=== PATIENT | male | born 1970 | race Two or more races ===

== ENCOUNTER 2020-10-04 03:04 | Emergency (ER) | payer MEDICAID ==
[~2020-10-04] VITALS: Ht 175.3 cm; Wt 88.6 kg
[2020-10-04 07:00] VITALS: BP 147/107
[2020-10-04] MEDS ORDERED: ACETAMINOPHEN 500 MG TABLET PO ONE (07:00)
== END 2020-10-04 08:31 | disposition home or self-care (01) ==
LOC: EMS 03:06
DX: R10.9 Unspecified abdominal pain (principal); K59.00 Constipation, unspecified; Z59.0 Homelessness
CPT/HCPCS: 99282; Z7502; Z7610

== ENCOUNTER 2021-03-24 11:46 | Emergency (ER) | payer MEDICAID ==
[~2021-03-24] VITALS: Ht 175.3 cm; Wt 79.5 kg
[2021-03-24 15:38] VITALS: BP 173/103
[2021-03-24] MEDS ORDERED: DiphenhydrAMINE HCL 50 MG CAPSULE PO ONE (15:45)
[2021-03-24] MEDS ORDERED: PERMETHRIN 5% 60 GM CREAM TP ONE (15:45)
[2021-03-24] MEDS ORDERED: DIPH25CA85 PO (15:50)
== END 2021-03-24 16:33 | disposition home or self-care (01) ==
LOC: EMS 11:52
DX: B86 Scabies (principal); F31.9 Bipolar disorder, unspecified; Z59.00 Homelessness unspecified
CPT/HCPCS: 99283

== ENCOUNTER 2021-04-26 18:26 | Emergency (ER) | payer MEDICAID ==
[~2021-04-26] VITALS: Ht 175.3 cm; Wt 77.3 kg
[~2021-04-26 18:26] MED LIST: DIPH25CA85 PO
[2021-04-26] MEDS ORDERED: ACETAMINOPHEN 500 MG TABLET PO ONE (19:00)
[2021-04-26] MEDS ORDERED: IBUPROFEN 600 MG TABLET PO ONE (19:00)
[2021-04-26 19:19] LABS: BASOPHILS % (AUTO) 0.7 % (0.0-2.0); EOSINOPHILS % (AUTO) 3.7 % (1.0-6.0); HEMATOCRIT 34.9 % (41-53); HEMOGLOBIN 11.9 g/dL (13.5-17.5); LYMPHOCYTES # (AUTO) 1.3 K/uL (1.0-4.8); LYMPHOCYTES % (AUTO) 15.7 % (22.0-44.0); MEAN CORPUSCULAR HEMOGLOBIN 27.9 pg (26.0-34.0); MEAN CORPUSCULAR HGB CONC 34.1 G/dL (31.0-37.0); MEAN CORPUSCULAR VOLUME 82 fL (80-100); MONOCYTES % (AUTO) 12.1 % (2.0-9.0); NEUTROPHILS # (AUTO) 5.4 K/uL (1.8-7.7); NEUTROPHILS % (AUTO) 67.8 % (40.0-70.0); PLATELET COUNT (AUTO) 345 K/uL (150-450); RED BLOOD CELL COUNT(AUTO) 4.26 MIL/uL (4.50-5.90); RED CELL DISTRIBUTION WIDTH 14.9 % (11.5-14.5)
[2021-04-26 19:28] LABS: ANION GAP 8 mmol/L (8-16); CALCIUM, TOTAL 8.7 mg/dL (8.8-10.5); CARBON DIOXIDE 29 mmol/L (22-29); CHLORIDE 103 mmol/L (98-107); CREATININE 1.24 mg/dL (0.60-1.30); GLOMERULAR FILTR. RATE CALC > 60 mL/min (>60); GLUCOSE,RANDOM 129 mg/dL (70-110); POTASSIUM 3.8 mmol/L (3.5-5.1); SODIUM SERUM 140 mmol/L (136-145); UREA NITROGEN, BLOOD 21 mg/dL (7-18)
[2021-04-26 19:34] LABS: ALANINE AMINOTRANSFERASE 33 U/L (12-78); ALBUMIN 3.2 g/dL (3.4-5.0); ALKALINE PHOSPHATASE 109 U/L (46-116); ASPARTATE AMINOTRANSFERASE 23 U/L (15-37); BILIRUBIN,TOTAL 0.6 mg/dL (0.1-1.0); TOTAL PROTEIN, SERUM 7.7 g/dL (6.4-8.2)
[2021-04-26 20:00] LABS: AMPHET/METH SCREEN,URINE POSITIVE (NEGATIVE); BARBITURATE SCREEN, URINE NEGATIVE (NEGATIVE); BENZODIAZEPINES SCREEN,URINE NEGATIVE (NEGATIVE); CANNABINOID SCREEN,URINE NEGATIVE (NEGATIVE); COCAINE SCREEN,URINE NEGATIVE (NEGATIVE); METHADONE SCREEN, URINE NEGATIVE (NEGATIVE); OPIATE SCREEN,URINE NEGATIVE (NEGATIVE)
[2021-04-26 20:05] LABS: PHENCYCLIDINE SCREEN,URINE NEGATIVE (NEGATIVE)
[2021-04-26] MEDS ORDERED: SODIUM CHLORIDE 0.9% 1,000 ML IV ONE (20:30)
[2021-04-26] MEDS ORDERED: ONDANSETRON HCL 4 MG/2 ML VIAL IVP ONE (20:30)
[2021-04-26] MEDS ORDERED: LORazepam 2 MG/ML VIAL IVP ONE (20:30)
[2021-04-26] MEDS ORDERED: LABETALOL HCL 5 MG/ML 20 ML VIAL IVP ONE (21:15)
[2021-04-26] MEDS ORDERED: PENI500T2 PO (21:47)
[2021-04-26] MEDS ORDERED: IBUP-1554 PO (21:47)
[2021-04-26] MEDS ORDERED: PERM60CR19 TP (21:47)
[2021-04-26] MEDS ORDERED: DIPH25CA85 PO (21:50)
[2021-04-27 03:22] VITALS: BP 124/74
== END 2021-04-27 03:53 | disposition home or self-care (01) ==
LOC: EMS 18:42
DX: R51.9 Headache, unspecified (principal); I10 Essential (primary) hypertension; F31.9 Bipolar disorder, unspecified; Z59.00 Homelessness unspecified; Z79.899 Other long term (current) drug therapy
CPT/HCPCS: 36415; 70450; 70551; 80053; 80307; 82140; 85025; 96361; 96374; 96375; 99285; G0480; J2060; J2405; J3490; J7030

== ENCOUNTER 2021-09-06 08:28 | Emergency (ER) | payer MEDICAID, OTHER ==
[~2021-09-06] VITALS: Ht 175.3 cm; Wt 68.2 kg
[~2021-09-06 08:28] MED LIST changes: +IBUP-1554 PO; +PENI500T2 PO; +PERM60CR19 TP
[2021-09-06 09:30] VITALS: BP 170/110
[2021-09-06] MEDS ORDERED: IBUP-1554 PO (09:37)
[2021-09-06] MEDS ORDERED: IBUPROFEN 600 MG TABLET PO ONE (09:45)
== END 2021-09-06 09:59 | disposition home or self-care (01) ==
LOC: EMS 08:28
DX: S40.011A Contusion of right shoulder, initial encounter (principal); F15.10 Other stimulant abuse, uncomplicated; F31.9 Bipolar disorder, unspecified; Z59.00 Homelessness unspecified; W19.XXXA Unspecified fall, initial encounter; Y93.89 Activity, other specified; Y92.89 Other specified places as the place of occurrence of the external cause; Y99.8 Other external cause status
CPT/HCPCS: 99283